=== PATIENT | female | born 1985 | race Caucasian/White ===

== ENCOUNTER 2016-12-02 09:08 | Emergency (ER) | payer MEDICAID ==
[2016-12-02] MEDS ORDERED: IBUPROFEN 600 MG TAB PO ONE (09:22)
--- NOTE | 2016-12-02 09:23 | UCPHY ---
H & P Time Seen by Provider: 12/02/16 09:14 Patient Type: New HPI/ROS: CHIEF COMPLAINT: Sore throat, fever, body aches HPI: The patient is a 31-year-old female with a history of bipolar and chronic pain who complains of sore throat, fever to 103 and body aches that began approximately 48 hours ago. She complains of nonproductive cough. She complains of pain in her throat when swallowing but is able to swallow food, fluids and pills. She denies abdominal pain. Multiple sick contacts with similar symptoms. She did not receive a flu shot this year. REVIEW OF SYSTEMS: Aside from elements discussed in the HPI, a comprehensive 10-point review of systems was reviewed and is negative. PMH: Chronic pain, seizure disorder, bipolar, depression. SOCIAL HISTORY: Denies alcohol or drug abuse. FAMILY HISTORY: Reviewed, noncontributory PHYSICAL EXAM: General:Patient is alert, in no acute distress. ENT:Eyes are normal to inspection. Tonsillar erythema and symmetrical tonsillomegaly is noted. No drooling. Extensive exudate throughout posterior oropharynx. Neck: Normal inspection. Full range of motion. Respiratory:No respiratory distress. Breath sounds normal bilaterally. Cardiovascular: Regular rate and rhythm. Strong peripheral pulses. Normal cap refill. Abdomen:The abdomen is nontender to palpation. There are no peritoneal signs. There are normal bowel sounds. Back: Normal to inspection. No tenderness to palpation. Skin: Normal color. No rash. Warm and dry. Extremities: Normal appearance. Full range of motion. Neuro: Oriented x3. Normal motor function. Normal sensory function. Constitutional: Initial Vital Signs Temperature (C) 37.1 C 12/02/16 09:31 Heart Rate 89 12/02/16 09:31 Respiratory Rate 16 12/02/16 09:31 Blood Pressure 133/84 H 12/02/16 09:31 O2 Sat (%) 94 12/02/16 09:31 O2 Delivery Mode Room Air Allergies/Adverse Reactions: amoxicillin [Amoxicillin] Allergy (Intermediate, Verified 12/02/16 09:35) Fever Sulfa (Sulfonamide Antibiotics) Allergy (Intermediate, Verified 12/02/16 09:35) Hives Penicillins Allergy (Verified 12/02/16 09:35) Home Medications: Medication Instructions Recorded Gabapentin 12/02/16 LORazepam 03/11/17 Naproxen 12/02/16 Prozac 12/02/16 Tylenol 12/02/16 MDM/Departure - MDM Diagnostics: Rapid strep positive, influenza swab negative. Chest x-ray viewed and interpreted by myself shows no significant acute disease. Medications Given: Discontinued Medications Ibuprofen (Motrin) 600 mg PO EDNOW ONE Stop: 12/02/16 09:23 Last Admin: 12/02/16 09:29 Dose: 600 mg ED Course/Re-evaluation: This patient presents with signs and symptoms of strep throat which was confirmed with rapid strep test. We will treat her with antibiotics. I see no signs of pneumonia, airway obstruction, severe sepsis or septic shock. The patient is comfortable with the plan for outpatient management and we discussed strict return precautions. - Depart Disposition: Home, Routine, Self-Care Clinical Impression: Streptococcal pharyngitis Condition: Good Instructions: Strep Throat (ED) Additional Instructions: Follow-up with your primary doctor within 72 hours. Return to the Emergency Department for high fever, difficulty swallowing, difficulty tolerating liquids , neck pain or stiffness, shortness of breath or other concerns. Use Tylenol and/or ibuprofen as directed for pain. Drink plenty of fluids. Referrals: LEEANNA SHIN [Primary Care Provider] - As per Instructions - PQRS PQRS Measurement: 134: Depression screening and followup, PRIME MD-PHQ2 (12 years and older) Over the last 2 weeks, how often have you been bothered by any of the following problems? 1. Feeling down, depressed, or hopeless? 2. Little interest or pleasure in doing things? Patient answered yes to both 1 and 2 130: Documentation of medications. Reviewed all patient medications, doses, route and frequency. 226: Do you smoke? No. 51: 18 years old and older with diagnosis of COPD, spirometry performance. Spirometry not performed; equipment not available. Patient has no history of COPD 52: 18 years old and older with COPD and symptoms of COPD or FEV1<60% predicted prescribed a B Agonist. Spirometry not performed; equipment not available.
[2016-12-02 09:41] VITALS: BP 133/84; PULSE 89; RESP 16; TEMP 98.8; O2SAT 94
== END 2016-12-02 10:45 | disposition home or self-care (01) ==
LOC: CED 09:08
DX: J02.0 Streptococcal pharyngitis (principal); G89.4 Chronic pain syndrome; Z88.0 Allergy status to penicillin; Z88.2 Allergy status to sulfonamides; Z88.1 Allergy status to other antibiotic agents
CPT/HCPCS: 71020-PO; 87400-PO; 87880-PO; 99204-PO; G0463-PO

== ENCOUNTER → 2017-07-09 | Outpatient (CLI) | payer MEDICAID | LOC: FIMAGING 11:53 | DX: M54.32 Sciatica, left side (principal); M54.31 Sciatica, right side ==

== ENCOUNTER → 2017-12-04 | Outpatient (CLI) | payer MEDICAID | LOC: SBRMNEURO 21:00 | PROVIDERS: ATTEND Student in an Organized Health Care Education/Training Program | DX: G47.33 Obstructive sleep apnea (adult) (pediatric) (principal) ==